=== PATIENT | female | born 1985 | race African-American/Black ===

== ENCOUNTER 2016-10-26 10:00 | Inpatient (IN) | payer OTHER ==
[2016-10-26] MEDS ORDERED: DEXTROSE 5%-LACTATED RINGERS 1,000 ML IV SCH (11:00)
[2016-10-26] MEDS ORDERED: OXYTOCIN 15 UNITS/ LR 250 ML 250 ML IVPB SCH (11:20)
[2016-10-26 11:35] LABS: BASOPHIL 0.4 % (0-2.0); EOSINOPHIL 3.6 % (0-4.5); MCH 28.6 pg (25.7-33.7); MCHC 32.2 g/dl (32.0-36.0); MEAN CELL VOLUME 89.1 fl (80-96); MEAN PLT VOLUME 8.9 fl (7.5-11.1); NEUTROPHILS 74.4 % (42.8-82.8); PLATELET COUNT 206 K/MM3 (134-434); RDW 14.1 % (11.6-15.6); WHITE BLOOD COUNT 12.6 K/mm3 (4.0-10.0)
[2016-10-26 11:50] LABS: CREATININE 0.7 mg/dL (0.55-1.02)
[2016-10-26 11:56] LABS: INR 0.99 (0.82-1.09); PROTHROMBIN TIME (PATIENT) 10.9 SEC (9.98-11.88)
[2016-10-26 11:58] LABS: ACTIVATED PTT 27.5 SECONDS (26.9-34.4)
[2016-10-26 12:06] VITALS: BMI 36.3
--- NOTE | 2016-10-26 12:26 | HP ---
Past Medical History - Primary Care Physician PCP:: Hayden Marion - Admission Chief Complaint: 41 weeks, labor History of Present Illness: 31 yo 41 weeks, in labor, cx 4 cm, 80 vx -3 mi, fhr cat 1. irregular contraction. no vaginal bleeding, no rom History Source: Patient Limitations to Obtaining History: No Limitations - Past Medical History ...: 4 ...Para: 3 ...Term: 3 ...: 0 ...Spon : 0 ...Induced : 0 ...Multiple Gestation: 0 ...LMP: 01/04/16 ... Weeks Gestation by Dates: 41.6 ...EDC by Dates: 10/13/16 ...EDC by Sono: 10/18/16 - Past Surgical History Hx Myomectomy: No Hx Transabdominal Cerclage: No - Smoking History Smoking history: Never smoked Have you smoked in the past 12 months: No - Alcohol/Substance Use Hx Alcohol Use: No - Social History Usual Living Arrangement: Yes: With Spouse History of Recent Travel: No Home Medications - Allergies Allergies/Adverse Reactions: Allergies Allergy/AdvReac Type Severity Reaction Status Date / Time No Known Allergies Allergy Verified 10/26/16 10:40 - Home Medications Home Medications: Ambulatory Orders Albuterol Sulfate Inhaler - [Ventolin HFA Inhaler -] 2 inh PO Q4H PRN 12/25/14 Ferrous Sulfate 1 tab PO DAILY 10/24/16 Vit/Iron Fumarate/FA [ Tablet] 1 tab PO DAILY 10/24/16 Family Disease History - Family Disease History Family Disease History: Respiratory: Grandparent (ASTHMA), Father, Brother ( ASTHMA), Other: Father, Mother (DRUGS) Review of Systems - Review of Systems Constitutional: reports: No Symptoms Eyes: reports: No Symptoms HENT: reports: No Symptoms Neck: reports: No Symptoms Cardiovascular: reports: No Symptoms Respiratory: reports: No Symptoms Gastrointestinal: reports: No Symptoms Genitourinary: reports: No Symptoms Musculoskeletal: reports: No Symptoms Integumentary: reports: No Symptoms Endocrine: reports: No Symptoms Hematology/Lymphatic: reports: No Symptoms Psychiatric: reports: No Symptoms Physical Exam - Maternity Vital Signs: Vital Signs Temperature 98.4 F 10/26/16 11:00 Pulse Rate 90 10/26/16 12:00 Respiratory Rate 18 10/26/16 12:00 Blood Pressure 138/56 10/26/16 12:00 O2 Sat by Pulse Oximetry (%) Constitutional: Yes: Well Nourished, No Distress, Calm Eyes: Yes: WNL, Conjunctiva Clear, EOM Intact HENT: Yes: WNL, Atraumatic, Normocephalic Neck: Yes: WNL, Supple, Trachea Midline Cardiovascular: Yes: WNL, Regular Rate and Rhythm Breast(s): Yes: WNL - Abdominal Exam/OB Fundal Height: 40 Number of Fetuses: Single Presentation: Vertex Contractions: Yes Regularity: Irregular Intensity: Mild/Mod Monitor Mode: External Heart Rate Location: [facility] Category: I Accelerations: Uniform Decelerations: None - Vaginal Exam/OB Vaginal Bleediing: No Speculum Exam: No Dilatation (cm): 4 cm Effacement (%): 80 Amniotic Membrane Status: Bulging Meconium: Moderate Presentation: Vertex/Position Station: -3 - Physical Exam Musculoskeletal: Yes: WNL Extremities: Yes: WNL Edema: Yes Edema: LLE: 1+, RLE: 1+ Deep Tendon Reflex Grade: Normal +2 - Labs Lab Results: CBC, BMP 10/26/16 11:10 10/26/16 11:10 Hemorrhage Risk Assessment - Risk Factors Medium Risk Factors: Yes: Multiple gestation Risk Score: 1 Risk Level: Medium Risk Problem List - Problems (1) Post term , 41 weeks Code(s): O48.0 - POST-TERM Z3A.41 - 41 WEEKS GESTATION OF (2) Labor established Code(s): MGE7420 - Assessment/Plan plan admit, fhm, irregular contraction, pitocin discussed, rba explained
--- NOTE | 2016-10-26 13:22 | PN ---
Progress Note (short form) - Note Progress Note: cx 4 cm, 80 vx -2 ,fhr cat 1 wants epidural Problem List - Problems (1) Post term , 41 weeks Code(s): O48.0 - POST-TERM Z3A.41 - 41 WEEKS GESTATION OF (2) Labor established Code(s): CRW0027 -
[2016-10-26] MEDS ORDERED: FENTANYL/BUPIVACAINE/NS/PF - PCEA - 50 ML DISP.SYRIN EP SCH (14:35)
[2016-10-26] MEDS: D5W-LR W/ 20 UNITS OXYTOCIN 1,000 ML IV SCH ×2 (15:25→16:43)
[2016-10-26] MEDS ORDERED: BISACODYL 10 MG SUPP.RECT RC PRN (15:42)
[2016-10-26] MEDS ORDERED: BENZOCAINE 20% 57 GM BOTTLE TP PRN (15:42)
[2016-10-26] MEDS ORDERED: WITCH HAZEL 50% (TUCKS) 40 PAD/JAR PAD TP PRN (15:42)
[2016-10-26] MEDS ORDERED: BENZOCAINE 28 GM HEMORRHOIDAL OINTMENT TP PRN (15:42)
[2016-10-26] MEDS ORDERED: METHYLERGONOVINE MALEATE 0.2 MG/1 ML AMP IM PRN (15:42)
[2016-10-26] MEDS ORDERED: oxyCODONE HCL 5 MG TABLET PO PRN (15:42)
[2016-10-26] MEDS: IBUPROFEN 600 MG TABLET (FP) PO PRN ×2 (18:07→23:28)
[2016-10-26] MEDS: ACETAMINOPHEN 325 MG TABLET (FP) PO PRN ×2 (18:08→23:27)
[2016-10-26] MEDS: FERROUS SO4 325 MG TABLET (FP) PO SCH (21:50)
[2016-10-27 07:27] LABS: BASOPHIL 0.4 % (0-2.0); EOSINOPHIL 2.9 % (0-4.5); MCHC 32.3 g/dl (32.0-36.0); MEAN CELL VOLUME 89.6 fl (80-96); MEAN PLT VOLUME 8.7 fl (7.5-11.1); NEUTROPHILS 72.9 % (42.8-82.8); PLATELET COUNT 198 K/MM3 (134-434); RDW 13.9 % (11.6-15.6)
--- NOTE | 2016-10-27 07:48 | PN ---
Post Progress Note - Subjective Subjective: no complins Type of Delivery: Vital Signs: Vital Signs Temperature 98.9 F 10/27/16 06:00 Pulse Rate 85 10/27/16 06:00 Respiratory Rate 20 10/27/16 06:00 Blood Pressure 139/63 10/27/16 06:00 O2 Sat by Pulse Oximetry (%) 100 10/26/16 16:30 Breast Exam: Yes: Soft, Other (no plans to BF ). No: Engorged Uterus: Yes: Fundus Firm, Fundus below umbilicus, Non-tender Lochia, amount: Moderate Extremities: Yes: Calves non-tender, Edema (1+/1+) Perineum: Yes: Intact Activity: Ambulating - Labs Labs: CBC WBC 12.6 K/mm3 (4.0-10.0) H D 10/26/16 11:10 RBC 4.12 M/mm3 (3.60-5.2) 10/26/16 11:10 Hgb 11.8 GM/dL (10.7-15.3) D 10/26/16 11:10 Hct 36.7 % (32.4-45.2) 10/26/16 11:10 MCV 89.1 fl (80-96) 10/26/16 11:10 MCHC 32.2 g/dl (32.0-36.0) 10/26/16 11:10 RDW 14.1 % (11.6-15.6) 10/26/16 11:10 Plt Count 206 K/MM3 (134-434) 10/26/16 11:10 MPV 8.9 fl (7.5-11.1) 10/26/16 11:10 Neutrophils % 74.4 % (42.8-82.8) 10/26/16 11:10 Lymphocytes % 13.2 % (8-40) 10/26/16 11:10 Monocytes % 8.4 % (3.8-10.2) 10/26/16 11:10 Eosinophils % 3.6 % (0-4.5) 10/26/16 11:10 Basophils % 0.4 % (0-2.0) 10/26/16 11:10 Assessment/Plan stable. plan repeat pp cbc today. discharge tomorrow in AM
[2016-10-27] MEDS: IBUPROFEN 600 MG TABLET (FP) PO PRN ×2 (07:53→17:30)
[2016-10-27] MEDS: ACETAMINOPHEN 325 MG TABLET (FP) PO PRN ×2 (07:54→17:31)
[2016-10-27] MEDS ORDERED: DIPHTH,PERTUSS(ACELL),TET 0.5 ML DISP.SYRIN IM ONE (10:00)
[2016-10-27] MEDS ORDERED: PNEUMOCOCCAL 23 VACCINE 0.5 ML VIAL IM ONE (10:00)
[2016-10-27] MEDS ORDERED: PNEUMOC 13-VAL CONJ-DIP CRM/PF 0.5 ML DISP.SYRIN IM ONE (10:00)
[2016-10-27] MEDS: PRENATAL VITAMINS W/ FOLIC ACID TABLET (FP) PO SCH (10:17)
[2016-10-27] MEDS: FERROUS SO4 325 MG TABLET (FP) PO SCH ×2 (10:17→21:38)
[2016-10-27] MEDS ORDERED: SENNOSIDES/DOCUSATE COMBO (SENNA PLUS) TABLET (UD) PO PRN (22:00)
[2016-10-28 00:31] VITALS: TEMP 97.8
[2016-10-28] MEDS: IBUPROFEN 600 MG TABLET (FP) PO PRN ×2 (01:30→08:01)
[2016-10-28] MEDS: ACETAMINOPHEN 325 MG TABLET (FP) PO PRN (08:01)
--- NOTE | 2016-10-28 08:18 | PN ---
Post Progress Note - Subjective Subjective: doing well, dc home Post Day: 2 Type of Delivery: Vital Signs: Vital Signs Temperature 97.8 F 10/27/16 22:00 Pulse Rate 94 H 10/27/16 22:00 Respiratory Rate 18 10/27/16 22:00 Blood Pressure 119/72 10/27/16 22:00 O2 Sat by Pulse Oximetry (%) 100 10/26/16 16:30 Breast Exam: Yes: Soft Uterus: Yes: Fundus Firm Abdomen/GI: Yes: Abdomen soft Lochia: Yes: Rubra Lochia, amount: Small Extremities: Yes: Calves non-tender Perineum: Yes: Intact Activity: Ambulating - Labs Labs: CBC WBC 16.0 K/mm3 (4.0-10.0) H 10/27/16 05:45 RBC 3.92 M/mm3 (3.60-5.2) 10/27/16 05:45 Hgb 11.4 GM/dL (10.7-15.3) 10/27/16 05:45 Hct 35.1 % (32.4-45.2) 10/27/16 05:45 MCV 89.6 fl (80-96) 10/27/16 05:45 MCHC 32.3 g/dl (32.0-36.0) 10/27/16 05:45 RDW 13.9 % (11.6-15.6) 10/27/16 05:45 Plt Count 198 K/MM3 (134-434) 10/27/16 05:45 MPV 8.7 fl (7.5-11.1) 10/27/16 05:45 Neutrophils % 72.9 % (42.8-82.8) 10/27/16 05:45 Lymphocytes % 15.1 % (8-40) 10/27/16 05:45 Monocytes % 8.7 % (3.8-10.2) 10/27/16 05:45 Eosinophils % 2.9 % (0-4.5) 10/27/16 05:45 Basophils % 0.4 % (0-2.0) 10/27/16 05:45 Assessment/Plan oob dc home see in 6 weeks
[2016-10-28] MEDS: PRENATAL VITAMINS W/ FOLIC ACID TABLET (FP) PO SCH (10:04)
[2016-10-28] MEDS: FERROUS SO4 325 MG TABLET (FP) PO SCH (10:04)
[2016-10-28 11:00] VITALS: BP 133/81; PULSE 84
--- NOTE | 2016-10-31 22:32 | DS ---
Physical Exam-SPONSORSHIP COORDINATOR Vital Signs: Vital Signs Temperature 97.8 F 10/28/16 10:00 Pulse Rate 84 10/28/16 10:00 Respiratory Rate 20 10/28/16 10:00 Blood Pressure 133/81 10/28/16 10:00 O2 Sat by Pulse Oximetry (%) 100 10/26/16 16:30 Constitutional: Yes: Well Nourished, No Distress, Calm Eyes: Yes: WNL, Conjunctiva Clear, EOM Intact HENT: Yes: WNL, Atraumatic, Normocephalic Neck: Yes: WNL, Supple, Trachea Midline Cardiovascular: Yes: WNL, Regular Rate and Rhythm Respiratory: Yes: WNL, Regular, CTA Bilaterally Gastrointestinal: Yes: WNL ...Rectal Exam: Yes: WNL Renal/: Yes: WNL ....Post : Yes: Uterus firm, Uterus non-tender, Slight lochia rubra Breast(s): Yes: WNL Musculoskeletal: Yes: WNL Extremities: Yes: WNL Edema: No Integumentary: Yes: WNL Neurological: Yes: WNL, Alert, Oriented ...Motor Strength: WNL Psychiatric: Yes: WNL, Alert, Oriented Labs: CBC, BMP 10/27/16 05:45 10/26/16 11:10 Delivery - Delivery Vaginal Delivery: Spontaneous (no complication) Type of Anesthesia: Epidural Episiotomy/Laceration: None EBL (cc): 300 Delivery, Single - Stages of Labor Date 1st Stage Initiatied: 10/25/16 Time 1st Stage Initiated: 21:30 Date 2nd Stage Initiated: 10/26/16 Time 2nd Stage Initiated: 15:05 Date of Delivery: 10/26/16 Time of Delivery: 15:20 Time Placenta Delivered: 15:25 Placenta: Yes: Spontaneous - Condition of Infant Senior Outside Sales Representative/Salesperson Parts Present: No Gender: Male Weight: 6 lb 14 oz Position: Left, OA Total Hours ROM (Hrs/Mins): 0hrs 8 min - 1 Minute Total Score: 9 5 Minutes Total Score: 9 - Terry Feeding Plan Initial Plan: Elected not to breastfeed exclusively throughout hospitalization Discharge Summary Reason For Visit: LABOR Procedures: Principal: Condition: Good - Instructions Diet, Activity, Other Instructions: see in 6 weeks Referrals: Andrei Olson MD [Staff Physician] - (follow up at [address] [place] [address] ) Disposition: HOME - Home Medications Comprehensive Discharge Medication List: Ambulatory Orders Albuterol Sulfate Inhaler - [Ventolin HFA Inhaler -] 2 inh PO Q4H PRN 12/25/14 Ferrous Sulfate 1 tab PO DAILY 10/24/16 Vit/Iron Fumarate/FA [ Tablet] 1 tab PO DAILY 10/24/16 Ibuprofen [Motrin -] 600 mg PO TID #21 tablet 10/28/16
== END 2016-10-28 14:26 | disposition home or self-care (01) | DRG 560 ==
LOC: JDEL 10:00 → JLDR 10:50 → J3W 17:00
PROVIDERS: ADMIT Obstetrics & Gynecology; ATTEND Obstetrics & Gynecology
PROC: 10E0XZZ Delivery of Products of Conception, External Approach (ICD-10-PCS; principal; 2016-10-26)
DX: O48.0 Post-term pregnancy (principal); Z3A.41 41 weeks gestation of pregnancy; Z37.0 Single live birth
CPT/HCPCS: 36415; 59409; 80048; 85025; 85610; 85730; 86593; 86850; 86900; 86901; 87340; 90715; 90732; G0009